=== PATIENT | female | born 1995 | race African-American/Black ===

== ENCOUNTER 2023-08-29 08:03 | Inpatient (IN) | payer OTHER ==
[~2023-08-29] VITALS: Ht 162.6 cm; Wt 54.4 kg
[2023-08-29 09:01] LABS: HEMATOCRIT. 37.4 % (36.0-48.0); HEMOGLOBIN. 11.9 g/dL (12.0-16.0); MEAN CORPUSCULAR HEMOGLOBIN 26.8 pg (28.0-32.0); MEAN CORPUSCULAR HGB CONC 31.9 g/dL (31.0-37.0); MEAN CORPUSCULAR VOLUME 83.9 fL (81.0-99.0); MEAN PLATELET VOLUME 7.3 fl (7.4-10.4); PLATELET 331 x1000/uL (130-400); RED BLOOD CELL COUNT 4.46 mill/uL (4.2-5.4); RED CELL DISTRIBUTION WIDTH 19.2 % (11.6-14.6)
[2023-08-29 09:12] LABS: CHLORIDE 109 mEq/L (98-107); POTASSIUM 3.7 mEq/L (3.5-5.1); SODIUM 139 mEq/L (136-145)
[2023-08-29 09:13] LABS: CALCIUM 9.1 mg/dL (8.7-10.4); CARBON DIOXIDE 20 mEq/L (21-32); DIFFERENTIAL COMMENT 1
[2023-08-29 09:18] LABS: CREATININE 0.7 mg/dL (0.6-1.0); GLUCOSE 85 mg/dL (70-105)
[2023-08-29 09:20] LABS: ALANINE AMINOTRANSFERASE 16 IU/L (10-49); ALBUMIN 5.1 g/dL (3.2-4.8); ASPARTATE AMINOTRANSFERASE 20 IU/L (<34); BILIRUBIN TOTAL 1.4 mg/dL (0.1-1.0)
[2023-08-29 09:21] LABS: PROTEIN TOTAL 8.3 g/dL (6.0-8.3)
[2023-08-29 09:31] LABS: B-HCG QUANTITATIVE 31338 mIU/mL (<3)
[2023-08-29] MEDS: ACETAMINOPHEN 1000MG/100ML 100 ML IV ONE (09:33)
[2023-08-29] MEDS: SODIUM CHLORIDE 0.9% 1,000 ML IV ONE ×2 (09:34→11:24)
[2023-08-29 09:59] LABS: UREA NITROGEN BLOOD < 5 mg/dL (9-23)
[2023-08-29] MEDS: MORPHINE SULFATE 4 MG/ML INJ (FOR IV/IM USE) IV ONE (11:49)
[2023-08-29 11:56] LABS: PLATELET ESTIMATE NORMAL
[2023-08-29 12:03] LABS: CLARITY URINE CLOUDY (CLEAR); COLOR URINE YELLOW (YELLOW); GLUCOSE URINE NEGATIVE (NEGATIVE); KETONES URINE 2+ (NEGATIVE); LEUKOCYTE ESTERASE URINE 2+ (NEGATIVE); NITRITE URINE POSITIVE (NEGATIVE); OCCULT BLOOD URINE 1+ (NEGATIVE); PH URINE 6.5 (4.5-8.0); PROTEIN URINE 1+ (NEGATIVE); SPECIFIC GRAVITY URINE 1.016 (1.005-1.030)
[2023-08-29 12:17] LABS: SQUAMOUS EPITHELIAL CELL URINE 1+ /lpf (RARE/1+)
[2023-08-29 12:18] LABS: WBC URINE 50-100 /hpf (0-2)
[2023-08-29 12:19] LABS: BACTERIA URINE 4+
[2023-08-29 13:00] LABS: *AMPHETAMINES SCREEN URINE NEGATIVE (NEGATIVE); *BARBITURATES SCREEN URINE NEGATIVE (NEGATIVE); *BENZODIAZEPINES SCREEN URINE NEGATIVE (NEGATIVE); *COCAINE SCREEN URINE NEGATIVE (NEGATIVE); METHADONE URINE SCREEN NEGATIVE (NEGATIVE)
[2023-08-29 13:01] LABS: CANNABINOID URINE SCREEN PRESUMPTIVE POSITIVE (NEGATIVE); ECSTASY MDMA SCREEN URINE NEGATIVE (NEGATIVE); OPIATES URINE SCREEN NEGATIVE (NEGATIVE); PHENCYCLIDINE URINE SCREEN NEGATIVE (NEGATIVE)
[2023-08-29] MEDS: CEFTRIAXONE 1GM/50ML 50 ML IV ONE (13:51)
[2023-08-29 15:44] VITALS: BP 100/56; PULSE 101; RESP 18; TEMP 97.9
[2023-08-29 15:50] VITALS: BP 100/56; PULSE 101; RESP 20; TEMP 97.9
[2023-08-29] MEDS ORDERED: ACETAMINOPHEN 325MG TABLET PO PRN (17:30)
[2023-08-29] MEDS: HYDROCODONE/ACETAMINOPHEN 5/325MG TABLET PO NR (17:37)
[2023-08-29 20:00] VITALS: BP 105/64; PULSE 83; RESP 20; TEMP 98.1
[2023-08-29] MEDS ORDERED: NALOXONE HCL 0.4MG/ML VIAL IV PRN (20:45)
[2023-08-29] MEDS: ONDANSETRON HCL 4MG/2ML INJ IV PRN (21:01)
[2023-08-29] MEDS: HYDROCODONE/ACETAMINOPHEN 10/325MG TABLET PO PRN (21:01)
[2023-08-29] MEDS: MORPHINE SULFATE 2 MG/ML CPJ (NOT FOR IM USE) IV NR (22:32)
[2023-08-30 08:00] VITALS: BP 106/61; PULSE 88; RESP 20; TEMP 99.4
[2023-08-30] MEDS: PRENATAL VIT/FE FUMARATE/FA TABLET PO SCH (08:56)
[2023-08-30] MEDS: CEFTRIAXONE 1GM/50ML 50 ML IV SCH (10:32)
[2023-08-30 12:00] VITALS: BP 104/62; PULSE 89; RESP 18; TEMP 103.2
[2023-08-30] MEDS: ACETAMINOPHEN 325MG TABLET PO PRN (12:12)
[2023-08-30 16:00] VITALS: BP 112/72; PULSE 99; RESP 20; TEMP 102.3
[2023-08-30 20:00] VITALS: BP 112/55; PULSE 72; RESP 20; TEMP 100
[2023-08-31] VITALS: BP 110/52; PULSE 82; RESP 20; TEMP 101
[2023-08-31 04:00] VITALS: BP 101/56; PULSE 86; RESP 20; TEMP 99.2
[2023-08-31 08:28] VITALS: BP 100/58; PULSE 80; RESP 18; TEMP 99.3
[2023-08-31 11:09] VITALS: BP 92/59; PULSE 72; RESP 18; TEMP 98.4
[2023-08-31] MEDS ORDERED: CEPH500C2 MT (12:59)
[2023-08-31 13:43] VITALS: BP 95/49; PULSE 69; TEMP 97.9; O2SAT 99
== END 2023-08-31 15:25 | disposition home or self-care (01) | DRG 566 ==
LOC: ER 08:03 → 5EST 13:39 → UNDOADMIN 13:39 → 8WST 13:56 → EDBEDREQTM 14:04 → EDBEDREQ 14:04
PROVIDERS: ADMIT Internal Medicine; ATTEND Internal Medicine
DX: O23.41 Unspecified infection of urinary tract in pregnancy, first trimester (principal); R55 Syncope and collapse; Z3A.01 Less than 8 weeks gestation of pregnancy; N39.0 Urinary tract infection, site not specified
CPT/HCPCS: 36415; 76801; 80053; 80305; 81003; 83605; 84702; 85025; 86850; 86900; 87077; 87186; 99285; J0696; J2270; J2405; J7030; J0131